=== PATIENT | female | born 1965 | race Caucasian/White ===

== ENCOUNTER 2023-01-23 12:32 | Emergency (ER) | payer MEDICAID ==
[~2023-01-23] VITALS: Ht 165.1 cm; Wt 88.6 kg
[2023-01-23 12:33] VITALS: BP 133/71; PULSE 72; RESP 18; TEMP 98.1
[2023-01-23] MEDS ORDERED: LIDOCAINE 5% TRANSDERMAL PATCH TD ONE (15:00)
[2023-01-23] MEDS ORDERED: KETOROLAC TROMETHAMINE 30 MG/ML VIAL IM ONE (15:00)
[2023-01-23 15:18] LABS: APPEARANCE,URINE CLEAR (CLEAR); BILIRUBIN,URINE NEGATIVE (NEGATIVE); GLUCOSE, URINE (UA) NEGATIVE (NEGATIVE); KETONES,URINE NEGATIVE (NEGATIVE); LEUKOCYTE ESTERASE ,URINE MODERATE (NEGATIVE); NITRATE,URINE NEGATIVE (NEGATIVE); OCCULT BLOOD,URINE NEGATIVE (NEGATIVE); PH,URINE 5.5 (5.0-8.0); PROTEIN,URINE NEGATIVE (NEGATIVE); SPECIFIC GRAVITIY, URINE 1.012 (1.003-1.030); UROBILINOGEN,URINE <=1.0 mg/dL (<=1.0)
[2023-01-23 15:37] LABS: RBC,URINE None Seen /HPF (0-2)
[2023-01-23 15:38] LABS: BACTERIA,URINE Many /HPF (None Seen)
== END 2023-01-23 16:01 | disposition home or self-care (01) ==
LOC: EMS 12:36
DX: M54.50 Low back pain, unspecified (principal); R35.0 Frequency of micturition
CPT/HCPCS: 99283; 81001; 87086; 87186; 96372; J1885